=== PATIENT | female | born 1995 | race Caucasian/White ===

== ENCOUNTER → 2021-05-19 | Outpatient (CLI) | payer BC ==
[~2021-05-19] MED LIST: IBU800 M1 PO; PEPCID AC 10MG10 MG PO; PRENATAL TABLET PO
== END ==
LOC: ZCOL.LAB 07:14
DX: Z20.822 Contact with and (suspected) exposure to COVID-19 (principal)

== ENCOUNTER 2021-05-21 01:14 | Inpatient (IN) | payer BC ==
[2021-05-21] VITALS (48 sets, daily range): BP systolic 87–139; BP diastolic 51–90; PULSE 50–131; TEMP 97.9–98.5
[~2021-05-21] VITALS: Ht 162.6 cm; Wt 86.2 kg
--- NOTE | 2021-05-21 01:30 | NUR ---
0130- Pt ambulatory onto unit. G1L0 and 41 and 12/17. Complaint of ctx every 4 minutes. Denies LOF or VB. Positive movement per pt. Dr. Farris called and updated. Orders given. See physician notification.
[2021-05-21] MEDS ORDERED: PRENATAL TABLET PO (02:27)
[2021-05-21] MEDS ORDERED: PEPCID AC 10MG10 MG PO (02:27)
[2021-05-21 03:58] LABS: BASO % 0.3 % (0.0-2.0); EOS % 0.1 % (0-4.0); GRAN # 10.9 (1.4-6.5); GRAN % 79.7 % (42.2-75.2); HEMATOCRIT 38.2 % (37.0-47.0); HEMOGLOBIN 13.4 g/dl (12.5-16.0); LYMPH # 1.8 (1.2-3.4); LYMPH % 13.3 % (20.0-51.0); MEAN CELL VOLUME 96 fl (80.0-100.0); MEAN CORPUSCULAR HEMOGLOBIN 34 pg (27.0-31.0); MEAN CORPUSCULAR HGB CONC 35 g/dl (33.0-37.0); MEAN PLATELET VOLUME 11.6 fl (7.4-10.4); MONO # 0.8 (0.1-0.6); MONO % 5.8 % (1.7-9.3); PLATELET COUNT 151 K/mm3 (130-400)
--- NOTE | 2021-05-21 04:00 | NUR ---
0400- difficulty tracing contractions. This RN in to bedside to readjust.
--- NOTE | 2021-05-21 05:00 | NUR ---
0500- Pt sitting up for epidural. Difficulty tracing FHR and contractions. This RN at bedside readusting EFM and TOCO throughout procedure.
--- NOTE | 2021-05-21 06:30 | NUR ---
0430- TOCO readjusted and got off again due to pt movement. Difficulty picking up contractions. This RN at bedside to readjust.
--- NOTE | 2021-05-21 07:00 | NUR ---
Peanut ball placed with explanation to patient, while patient remains on left side. Patient reports she is feeling some contractions. Popsicle provided.
--- NOTE | 2021-05-21 07:52 | NUR ---
Repositioned right lateral, peanut ball.
--- NOTE | 2021-05-21 08:23 | NUR ---
Repositioned to [facility] @ this time. Leonarda care provided. Pads changed out under patient. Note bloody show in amniotic fluid.
--- NOTE | 2021-05-21 08:59 | NUR ---
Repositioned to right lateral, patient pushes epidural bolus button.
--- NOTE | 2021-05-21 10:19 | NUR ---
First push attempt with instruction.
--- NOTE | 2021-05-21 10:50 | NUR ---
Switched from Lithotomy pushing position to towel method, as patient braces feet against squat bar. Montoya catheter removed @ 1045.
--- NOTE | 2021-05-21 11:33 | NUR ---
1133: here for delivery. Evaluates pushing efforts, then verbalizes ready for delivery. Nursery nurse notified.
--- NOTE | 2021-05-21 11:40 | NUR ---
After just over an hour and 20 minutes of pushing efforts, spontaneous vaginal delivery of head @ 1140 by noted. Loose nuchal x1. 11:40:34- Spontaneous vaginal delivery of female infant by . Infant to abdomen. Umbilical cord doubly clamped and cut by father of baby with guidance. Terminal meconium noted. Infant to mother's abdomen, as tended to, dried and stimulated by Julia, RN, nursery nurse. 1148: Spontaneous vaginal delivery of placenta by . Pit bolus begun immediately following. works to repair hymenal ring tear, as well as 2nd degree perineal laceration.
--- NOTE | 2021-05-21 14:35 | NUR ---
Assisted out of bed for first time post delivery. Note patient right leg still heavy, tingly, diana upon ambulation. No fall. Ambulates to bathroom with one assist. Carina care provided. Patient unable to spontaneously void. Verbalizes her perineum remains numb post epidural. Mesh underwear, carina pad, ice pack and Tucks applied.
--- NOTE | 2021-05-21 16:00 | NUR ---
Patient ambulates to the bathroom. Unable to void at this time. Montoay catheter placed per sterile technique. Moderate amount of clear yellow urine noted.
[2021-05-22 04:05] VITALS: BP 114/75; PULSE 79; TEMP 98.1
[2021-05-22 07:20] VITALS: BP 99/61; PULSE 89; TEMP 97.5
--- NOTE | 2021-05-22 09:51 | NUR ---
Initial visit; Family thanked Jewelry Repairer offering congratulations and God's blessings for the of their daughter. Jewelry Repairer thanked family for choosing [facility].
[2021-05-22 12:30] VITALS: BP 107/62; PULSE 81; TEMP 98.3
[2021-05-22 16:30] VITALS: BP 113/59; PULSE 64; TEMP 98.5
[2021-05-22 21:00] VITALS: BP 122/67; PULSE 72; TEMP 97.8
[2021-05-23 02:00] VITALS: BP 115/78; PULSE 70; TEMP 97.8
[2021-05-23 07:00] VITALS: BP 123/67; PULSE 89; TEMP 98.3
[2021-05-23] MEDS ORDERED: IBU800 M1 PO (09:18)
== END 2021-05-23 12:55 | disposition home or self-care (01) | DRG 807 ==
LOC: LDRO 01:14 → LDR 01:30 → LDRO 02:58 → LDR 03:12 → OB 14:30
PROVIDERS: Obstetrics & Gynecology; ADMIT Obstetrics & Gynecology
PROC: 10E0XZZ Delivery of Products of Conception, External Approach (ICD-10-PCS; principal; 2021-05-21)
DX: O48.0 Post-term pregnancy (principal); Z37.0 Single live birth; O69.81X0 Labor and delivery complicated by cord around neck, without compression, not applicable or unspecified; O70.1 Second degree perineal laceration during delivery; Z3A.41 41 weeks gestation of pregnancy
CPT/HCPCS: J2405; J2590; J7120

== ENCOUNTER 2022-07-08 14:42 | Emergency (ER) | payer BC ==
[~2022-07-08] VITALS: Ht 165.1 cm; Wt 71.4 kg
[2022-07-08 15:19] VITALS: BP 109/71; TEMP 97.7
[2022-07-08] MEDS ORDERED: NIKKI1 TAB PO (16:24)
[2022-07-08] MEDS ORDERED: CELEXA 20MG20 MG/TAB (16:25)
[2022-07-08] MEDS ORDERED: FLEXERIL 1010 MG/TAB PO (17:01)
[2022-07-08 17:11] VITALS: PULSE 74
== END 2022-07-08 17:13 | disposition home or self-care (01) ==
LOC: COL.ER 14:42
DX: S29.012A Strain of muscle and tendon of back wall of thorax, initial encounter (principal); X58.XXXA Exposure to other specified factors, initial encounter